=== PATIENT | female | born 2000 | race Two or more races ===

== ENCOUNTER 2025-06-24 09:10 | Outpatient (AMB) | payer MEDICAID, SELFPAY ==
[2025-06-24 09:26] VITALS: BP 126/84; PULSE 106; RESP 20; TEMP 36.6; O2SAT 98; BMI 45.4
--- NOTE | 2025-06-24 09:26 | OBCLNT_ITS ---
Vital Signs 06/24/25 09:26 Height 1.73 m Height Method Stated Weight 135.624 kg Weight Measurement Method Standing Scale BMI 45.4 BP 126/84 Blood Pressure Source Automatic Cuff Blood Pressure Location Left Upper Arm Position Sitting Respiration 20 Pulse 106 H Pulse Source Monitor Temp 97.8 F Temp Source Oral Pulse Oximetry (%) 98 Oxygen Delivery Method Room Air Allergies/Home Meds Allergies & Medications Allergies No Known Allergies Allergy (Verified 06/24/25 09:28) Medication Reconciliation No Known Home Medications 06/24/25 [History Confirmed 06/24/25] Intake Visit Data Collection New Patient or Established: New Patient not seen in past 3 years at [facility] (considered New) Reason for Visit:: INITIAL CARE Seen by Clinical Staff ONLY (RN/MA): No Senior Biostatistician Required: No Do You Feel Safe at Home: Yes Authorities Contacted: N/A PCP or OBGYN visit in last 3 months: Yes Hx Now: Yes Are you currently on any form of Control: No Last menstrual period: 10/19/24 Pain Present Currently: No Pain Scale Used: Ramon-Carlos/Numerical Pain scale:: 0 Smoking Status Smoking Status: Former smoker Questionnaires Covid-19 Vaccine Questionnaire Has patient been vacinated for Covid-19 Have you been vacinated for Covid-19: No PHQ-9 PHQ-2 Over the last 2 weeks, how often have you been bothered by any of the following problems? 1. Little interest or pleasure in doing things: not at all 2. Feeling down, depressed, or hopeless: not at all Total score: 0 PHQ-9 3. Trouble falling or staying asleep, or sleeping too much: Not at all 4. Feeling tired or having little energy: Not at all 5. Poor appetite or overeating: Not at all 6. Feeling bad about yourself - or that you are a failure or have let yourself or your family down: Not at all 7. Trouble concentrating on things, such as reading the newspaper or watching television: Not at all 8. Moving or speaking so slowly that other people could have noticed? - Or the opposite - being so fidgety or restless that you have been moving around a lot more than usual: not at all 9. Thoughts that you would be better off or of hurting yourself in some wa y: Not at all Total score: 0 Source: Developed by Drs. Jono Watson, Trish Blanco, Guero Estevez and colleagues, with an educational jose from [employer]. Depression screen completed yes Social History Living Situation History Marital Status: Lives With: Family Housing: House Tobacco History Smoking Status: Former smoker Second Hand Smoke Exposure: Yes Alcohol History Alcohol Intake: Former Domestic Abuse History Do You Feel Safe at Home: Yes History of Present Illness HPI Narrative Chief Complaint Transfer of care from Dr. Vu for ongoing care Patient is a woman at 35 weeks gestation, presenting for transfer of care from Dr. Vu. She reports that her is progressing well overall. She denies any contractions or leaking of fluid. The baby is active, and she has not experienced any concerning symptoms such as severe headaches, visual disturbances, or right-sided abdominal pain. She mentions feeling that she has doubled in size in the past couple weeks all of a sudden, which she attributes to normal progression. Her current has been complicated by hypertension and proteinuria. The hypertension was diagnosed during this , and medication was initiated after conception. She is currently taking labetalol for blood pressure management and appears to be adhering to her prescribed treatment regimen. Medical History: - Hypertension diagnosed during - Proteinuria Obstetric History: - GPAL: A0 L0 - Current : 35 weeks gestation with estimated due date of July 26, 2025 Medications: - Labetalol 200 mg three times daily - One-hour glucose tolerance test (04-23-2025): 83 mg/dL - CBC (03-13-2025): Hemoglobin 12.9 g/dL, platelets 276 - A1c (3rd trimester): 4.9% - Panel (03-13-2025): Blood group B-positive, rubella immune, RPR nonreactive, hepatitis B negative, HIV negative, gonorrhea negative, chlamydia negative, AFB negative, cystic fibrosis negative - RPR (3rd trimester): Nonreactive OB Initial Visit OB Flowsheet OB Flowsheet Initial Weight: Not Recorded Date -?-?-?-?-?-?-?-?-?-?-?-?- EGA Weight BP Alb Glu CTX Pres Fundal ht FHR Mov Dilation Station Effacement Hx Notes Visit Note 06/24/25 -?-?-?-?-?-?-?-?-?-?-?-?- 35w 3d 135.624 kg 126/84 absent cephalic 36 14 5 active - Mar Mason is presenting for transfer of care from Dr. Vu for ongoing care. - She is currently 35 weeks wit h an estimated due date of 07-26-2025, expecting a boy named Jesus. - She has a history of hypertension and proteinuria diagnosed during this . - She is currently taking labetalol 200 mg three times daily for blood pressure management. - She reports that the is kennedi g well overall. - She describes feeling like she has do ubled in size in the past couple weeks all of a sudden. - She reports the baby is active. - She denies contractions or leaking of fluid. - She confirms adherence to her blood pressure medication regimen. Plan - Continue current labetalol regimen of 200mg three times daily - Monitor blood pressure closely - Plan for delivery at 38 or 39 weeks de pending on blood pressure control - Follow up appointments weekly - Patient instructed to urgently seek me dical attention for signs of preeclampsia (severe headache, visual disturbances, right upper quadrant pain) - No medication refills needed at this t kasi Menstrual History Menstrual reliability: definite Flow: normal Menstrual regularity: regular Monthly: Yes Age at menarche: 11 On control pills at conception: No Associated symptoms (LMP): Reports fatigue OB History : 1 Infection History & Risk Evaluation History of STDs: none Genetic Screening & History Genetic Screening/Teratology Counseling - Includes patient, baby's father, or anyone in either family with: 1. Patient's age 35 years or older as of estimated date of delivery: No 2. Thalassemia (Cymro, Kiswahili, Mediterranean, or Background); MCV less than 80: No 3. Neural Tube Defect (Meningomyelocele, Spina Bifida, or Anencephaly): No 4. Congenital Heart Defect: No 5. Down Syndrome: No 6. Haile-Sachs (Ashkenazi Protestant, Cajun, Icelandic Guinean): No 7. Sloane Disease (Ashkenazi Protestant): No 8. Familial Dysautonomia (Ashkenazi Protestant): No 9. Sickle Cell Disease or Trait (): No 10. Hemophilia or other blood disorders: No 11. Muscular Dystrophy: No 12. Cystic Fibrosis: No 13. Kali's Chorea: No 14. Mental Retardation/Autism: Yes (AUTISM BABY FATHER NEPHEW) 15. Other inherited genetic or chromosomal disorder: No 16. Maternal Metabolic Disorder (EG,TYPE 1 Diabetes, PKU): No 17. Patient or baby's father had a child with defects not listed above: No 18. Recurrent loss or a stillbirth: No 19. Medications (including supplements, vitamins, herbs or otc drugs)/illicit/recreational drugs/alcohol since last menstrual period: No 20. Any other: No Infection History 1. Live with someone with TB or exposed to TB: No 2. Rash or viral illness since last menstrual period: No 3. Hepatitis B,C: No Other (see comments) Source: [employer] Review of Systems Constitutional Constitutional: Reports fatigue Endocrine Endocrine: Reports fatigue Exam General Limitations: no limitations General Appearance: alert, in no apparent distress and comfortable Head Head exam: atraumatic and normocephalic Eye Eye exam: Present normal appearance, PERRL and EOMI Neck Neck exam: Present normal inspection and full ROM Chest Chest inspection: Present normal inspection and symmetric chest wall rise; Absent tenderness Resp Respiratory exam: Present normal lung sounds bilaterally; Absent respiratory distress Card Cardiovascular exam: Present regular rate and normal rhythm Abdominal Abdominal exam: Present soft and normal bowel sounds; Absent tenderness, guarding, rebound or rigidity Neuro Neurological exam: Present alert and oriented X3 Psych Psychiatric exam: Present normal affect Assessment & Plan Diagnosis / Problem List (1) Supervision of high risk , unspecified, third trimester: Status: Acute Plan Problem List - Gestational hypertension - Proteinuria Assessment 35-week with chronic hypertension, currently well-controlled on labetalol 200mg TID. Blood pressure today 126/84. Patient reports good movement, denies contractions or leaking fluid. heart rate auscultated at 143-145 bpm. History of proteinuria noted. Patient educated on signs of preeclampsia. Fundal height appears large for gestational age. Patient reports recent rapid growth in abdominal size. All labs, including blood type, infectious disease screening, and genetic testing, are within normal limits. One-hour glucose tolerance test and recent A1c are normal. Plan - Continue current labetalol regimen of 200mg three times daily - Monitor blood pressure closely - Plan for delivery at 38 or 39 weeks depending on blood pressure control - Follow up appointments weekly - Patient instructed to urgently seek medical attention for signs of preeclampsia (severe headache, visual disturbances, right upper quadrant pain) - No medication refills needed at this time 1. Progress Reviewed gestational age (35 weeks), growth, and heart rate (143-145 bpm, normal). Planned frequent visits (weekly until delivery). 2. Instructed patient to monitor movements and report decreases immediately. 3. Testing Counseled on routine third-trimester labs per guidelines. Discussed potential need for ultrasound or monitoring based on risk factors. 4. Preeclampsia Precaution Educated on preeclampsia signs: severe headache, vision changes (floaters), right upper quadrant pain, sudden swelling. Advised urgent reporting of symptoms and discussed blood pressure monitoring (patient on labetalol 200mg three times daily for gestational hypertension). 5. Labor Precautions Reviewed labor signs: regular contractions, pelvic pressure, back pain, bleeding, or fluid leakage. Instructed to seek immediate care for these symptoms. 6. Lifestyle and Delivery Preparation Reinforced vitamins, nutrition, and safe activity. Discussed plan, pain management, and . Advised on labor preparation (e.g., hospital bag) and expectations. Planned delivery at 38-39 weeks depending on blood pressure control. 7. Psychosocial Support Assessed emotional well-being and offered resources for mental health or parenting support.
== END 2025-06-24 10:26 | disposition home or self-care (01) ==
LOC: HODSOBC 09:10
PROVIDERS: Supervising Provider Obstetrics & Gynecology; Visit Provider Obstetrics & Gynecology
DX: O09.893 Supervision of other high risk pregnancies, third trimester (principal); O13.3 Gestational [pregnancy-induced] hypertension without significant proteinuria, third trimester; Z3A.35 35 weeks gestation of pregnancy; Z87.891 Personal history of nicotine dependence
CPT/HCPCS: 99214; G0463

== ENCOUNTER 2025-07-03 13:51 | Outpatient (AMB) | payer MEDICAID, SELFPAY ==
[2025-07-03 14:03] VITALS: BP 125/86; PULSE 92; RESP 18; TEMP 35.7; O2SAT 97; BMI 45.1
--- NOTE | 2025-07-03 14:03 | AMB.OBVISIT ---
Vital Signs 07/03/25 14:03 Height 1.73 m Height Method Stated Weight 135.171 kg Weight Measurement Method Standing Scale BMI 45.1 BP 125/86 H Blood Pressure Source Automatic Cuff Blood Pressure Location Left Upper Arm Position Sitting Respiration 18 Pulse 92 Pulse Source Monitor Temp 96.3 F L Temp Source Oral Pulse Oximetry (%) 97 Oxygen Delivery Method Room Air Allergies/Home Meds Allergies & Medications Allergies No Known Allergies Allergy (Verified 07/03/25 14:04) Medication Reconciliation No Known Home Medications 06/24/25 [History Confirmed 07/03/25] Intake Visit Data Collection New Patient or Established: Established Patient (seen at [facility] within 3 years) Reason for Visit:: CARE Seen by Clinical Staff ONLY (RN/MA): No Screen Printing Machine Operator Helper Required: No Do You Feel Safe at Home: Yes Authorities Contacted: N/A PCP or OBGYN visit in last 3 months: Yes Hx Now: Yes Are you currently on any form of Control: No Pain Present Currently: No Pain Scale Used: Ramon-Carlos/Numerical Pain scale:: 0 Smoking Status Smoking Status: Former smoker Questionnaires Covid-19 Vaccine Questionnaire Has patient been vacinated for Covid-19 Have you been vacinated for Covid-19: No PHQ-9 PHQ-2 Over the last 2 weeks, how often have you been bothered by any of the following problems? 1. Little interest or pleasure in doing things: not at all 2. Feeling down, depressed, or hopeless: not at all Total score: 0 PHQ-9 3. Trouble falling or staying asleep, or sleeping too much: Not at all 4. Feeling tired or having little energy: Not at all 5. Poor appetite or overeating: Not at all 6. Feeling bad about yourself - or that you are a failure or have let yourself or your family down: Not at all 7. Trouble concentrating on things, such as reading the newspaper or watching television: Not at all 8. Moving or speaking so slowly that other people could have noticed? - Or the opposite - being so fidgety or restless that you have been moving around a lot more than usual: not at all 9. Thoughts that you would be better off or of hurting yourself in some way: Not at all Total score: 0 Source: Developed by Trish Ocampo B.W. Francis, Guero Estevez and colleagues, with an educational jose from [employer]. Depression screen completed yes Social History Living Situation History Lives With: Family Housing: House Tobacco History Smoking Status: Former smoker Second Hand Smoke Exposure: Yes Alcohol History Alcohol Intake: Former Domestic Abuse History Do You Feel Safe at Home: Yes Care OB Visit Log OB Flowsheet Initial Weight: Not Recorded Date <del>?</del> EGA Weight BP Alb Glu CTX Pres Fundal ht FHR Mov Dilation Station Effacement Hx Notes Visit Note 06/24/25 <del>?</del> 35w 3d 135.624 kg 126/84 absent cephalic 36 145 active - Mar Mason is presenting for transfer of care from Dr. Vu for ongoing care. - She is currently 35 weeks with an estimated due date of 07-26-2025, expecting a boy named Jesus. - She has a history of hypertension and proteinuria diagnosed during this . - She is currently taking labetalol 200 mg three times daily for blood pressure management. - She reports that the is going well overall. - She describes feeling like she has doubled in size in the past couple weeks all of a sudden. - She reports the baby is active. - She denies contractions or leaking of fluid. - She confirms adherence to her blood pressure medication regimen. Plan - Continue current labetalol regimen of 200mg three times daily - Monitor blood pressure closely - Plan for delivery at 38 or 39 weeks depending on blood pressure control - Follow up appointments weekly - Patient instructed to urgently seek medical attention for signs of preeclampsia (severe headache, visual disturbances, right upper quadrant pain) - No medication refills needed at this time 07/03/25 <del>?</del> 36w 5d 135.171 kg 125/86 absent cephalic 37 175 active - Patient has a history of gestational hypertension with proteinuria. - She reports adherence to prescribed medication (labetalol). - Denies symptoms of preeclampsia: - No headaches - No visual disturbances (flashes of light) - movement reported as normal. - Induction of Labor scheduled for July 13 - Patient to call provided number at 8:00 AM on July 13 for room assignment and arrival time - Cervix will be checked upon hospital arrival to determine appropriate induction medication - Goal is to achieve vaginal unless complications arise - Patient given brochure with induction instructions - No further appointments scheduled prior to induction CHRISTIANO Calculator Estimated Delivery Date Method Current WG Current Estimate 07/26/25 LMP (Certain) 37w 2d Other Estimates 07/26/25 Ultrasound #1 37w 2d Notes Visit Date: 06/24/25 Last Updated by: Navin Red MD - One-hour glucose tolerance test (04-23-2025): 83 mg/dL - CBC (03-13-2025): Hemoglobin 12.9 g/dL, platelets 276 - A1c (3rd trimester): 4.9% - Panel (03-13-2025): Blood group B-positive, rubella immune, RPR nonreactive, hepatitis B negative, HIV negative, gonorrhea negative, chlamydia negative, AFB negative, cystic fibrosis negative - RPR (3rd trimester): Nonreactive Office Procedures O[facility] Clinic LOC & Office Proc's Nursing/Assessment Patient Status: Established Patient OB Clinic Nursing Assessment: Medication Reconciliation, Update PMH in EMR and Vital Signs OB Clinic Coordination of Care: Complex Care and Chronic Disease 1-5, Consent,records obtained, informed consent, Education Simp Pt/Fam, 1 Ins Authorization, Lab and Imaging orders, Results/Orders obtained and Staff clarify orders Special Needs: Heart tones Established Patient Charge Established Patient Point Assignment: 150 Established Patient Point Charge: EP Level 4 (120-155) Assessment & Plan Diagnosis / Problem List (1) Supervision of high risk , unspecified, third trimester: Status: Acute Plan Problem List - Gestational hypertension with proteinuria - Large for gestational age fetus - at 36 weeks and 5 days gestation Assessment 1 at 36 weeks and 5 days gestation with estimated due date of 07/26. Patient has gestational hypertension with proteinuria. Current blood pressure is 125. Fetus is large for gestational age. heart rate is 175 bpm, which is within normal limits. Patient denies experiencing symptoms such as flashes of light or headaches. Plan - Induction of Labor scheduled for July 13 - Patient to call provided number at 8:00 AM on July 13 for room assignment and arrival time - Cervix will be checked upon hospital arrival to determine appropriate induction medication - Goal is to achieve vaginal unless complications arise - Patient given brochure with induction instructions - No further appointments scheduled prior to induction 1. Progress Reviewed gestational age, growth, and heart rate. Planned frequent visits (every 2 weeks until 36 weeks, then weekly). 2. Instructed patient to monitor movements and report decreases immediately. 3. Testing Counseled on routine third-trimester labs per guidelines. Discussed potential need for ultrasound or monitoring based on risk factors. 4. Preeclampsia Precaution Educated on preeclampsia signs: severe headache, vision changes, right upper quadrant pain, sudden swelling. Advised urgent reporting of symptoms and discussed blood pressure monitoring if high risk. 5. Labor Precautions Reviewed labor signs: regular contractions, pelvic pressure, back pain, bleeding, or fluid leakage. Instructed to seek immediate care for these symptoms. 6. Lifestyle and Delivery Preparation Reinforced vitamins, nutrition, and safe activity. Discussed plan, pain management, and . Advised on labor preparation (e.g., hospital bag) and expectations. 7. Psychosocial Support Assessed emotional well-being and offered resources for mental health or parenting support.
== END 2025-07-03 14:40 | disposition home or self-care (01) ==
PROVIDERS: Supervising Provider Obstetrics & Gynecology; Visit Provider Obstetrics & Gynecology
DX: O09.893 Supervision of other high risk pregnancies, third trimester (principal); O13.3 Gestational [pregnancy-induced] hypertension without significant proteinuria, third trimester; O36.63X0 Maternal care for excessive fetal growth, third trimester, not applicable or unspecified; Z3A.36 36 weeks gestation of pregnancy; Z87.891 Personal history of nicotine dependence
CPT/HCPCS: 99214; G0463

== ENCOUNTER 2025-07-13 19:22 | Inpatient (IN) | payer MEDICAID, SELFPAY ==
[2025-07-13] VITALS (11 sets, daily range): BP systolic 104–158; BP diastolic 58–112; PULSE 64–93; RESP 16–17; TEMP 37.2–37.6; BMI 45.6
[2025-07-13 20:01] LABS: Basophils # (Auto) 0.0 Thou/mm3 (0.0-0.2); Basophils % (Auto) 0 % (0-2.5); Eosinophils # (Auto) 0.3 Thou/mm3 (0.0-0.5); Eosinophils % (Auto) 3 % (0-10); Hematocrit 36.5 % (36.0-46.0); Hemoglobin 12.3 g/dL (12.0-16.0); Immature Granulocytes Auto 0.03 Thou/mm3 (0.00-0.00); Lymphocytes # (Auto) 2.5 Thou/mm3 (1.0-4.8); Lymphocytes % (Auto) 23 % (10-50); Mean Corpuscular HGB Conc 33.7 g/dl (31.0-37.0); Mean Corpuscular Hemoglobin 30.5 pg (25.0-35.0); Mean Corpuscular Volume 91 fL (80-100); Monocytes # (Auto) 0.7 Thou/mm3 (0.0-0.8); Monocytes % (Auto) 6 % (0-12); Neutrophils # (Auto) 7.5 Thou/mm3 (1.8-7.7); Neutrophils % (Auto) 68 % (37-80); Nucleated Red Blood Cell # 0.00 Thou/mm3 (0.00-0.00); Nucleated Red Blood Cell % 0 /100 WBC (0); Platelet Count 265 Thou/mm3 (140-440); RDW Standard Deviation 43.7 fL (36.4-46.3); Red Blood Count 4.03 Miln/mm3 (4.00-5.20); White Blood Count 11.0 Thou/mm3 (3.6-11.0)
--- NOTE | 2025-07-13 20:29 | XR_ITS ---
Examination: Complete OB ultrasound greater than 14 weeks Date and time of exam: July 13, 2025 2130 hours INDICATIONS: Labor evaluation, induction today Findings: Viable intrauterine single fetus with single amniotic sac presentation cephalic Cardiac motion 133 bpm Placenta anterior grade 3 Umbilical cord insertion seen Amniotic fluid index 10.2 cm spine maternal left Cervix 3.1 cm Ovaries obscured by bowel gas. Composite estimated gestational age based on BPD, head circumference, abdominal circumference, femur length is 37 weeks 5 days Estimated weight 3180 g. Survey of intracranial anatomy, spinal anatomy, abdominal anatomy, four-chamber heart performed with no abnormalities identified. Impression: Viable intrauterine gestation cephalic presentation.
[2025-07-13 20:41] LABS: Syphilis Nonreactive (Nonreactive)
[2025-07-13 23:02] LABS: Fibrinogen 545 mg/dL (175-375); INR 1.0 (0.9-1.3); Partial Thromboplastin Time 26.5 Seconds (22.0-36.0); Prothrombin Time 10.3 Seconds (9.0-12.2)
[2025-07-13 23:46] LABS: Alanine Aminotransferase 15 U/L (10-49); Albumin, Serum 4.3 gm/dL (3.5-5.0); Albumin/Globulin Ratio 1.7 (1.2-2.2); Alkaline Phosphatase 162 U/L (46-116); Anion Gap 11 (7-16); Aspartate Amino Transferase 22 U/L (0-34); BUN/Creatinine Ratio 12 Ratio (12-20); Bilirubin,Total 0.3 mg/dL (0.3-1.2); Blood Urea Nitrogen 11 mg/dL (9-23); Calcium 9.7 mg/dL (8.3-10.6); Calcium (Corrected) 9.7 mg/dL (8.5-10.1); Carbon Dioxide 22.4 mMol/L (20.0-31.0); Chloride 109 mMol/L (98-107); Creatinine (Component) 0.9 mg/dL (0.6-1.3); Estimated Creatinine Clearance 139.9 mL/min (>60); Globulin 2.6 gm/dL (2.3-3.5); Glucose 87 mg/dL (74-106); Osmolality,Calculated 281 (275-295); Potassium 3.9 mMol/L (3.4-5.1); Sodium 142 mMol/L (136-145); Total Protein 6.9 gm/dL (5.7-8.2); Uric Acid 5.9 mg/dL (3.1-7.8); eGFR > 60 See Note
[2025-07-14] VITALS (43 sets, daily range): BP systolic 88–137; BP diastolic 50–91; PULSE 68–95; RESP 16–17; TEMP 36.8–37.1
[2025-07-14 00:16] LABS: Creatinine,Random Urine 214 mg/dL (30-125); Protein Total, Random Urine 38 mg/dL (1-14)
--- NOTE | 2025-07-14 00:23 | PC.NURSE ---
07/13/2025 221 BP 158/112 PATIENT LAYING ON CUFF, RECYCLED 2216 115/62.
[2025-07-14 00:38] LABS: LDH (Lactate Dehydrogenase) 224 U/L (120-246)
[2025-07-14] MEDS: RINGERS LACTATED 1000 ML 1,000 ML 100 ML IV ×2 (03:54→16:40)
--- NOTE | 2025-07-14 07:15 | ESHP_ITS ---
Documentation for date of: 07/14/25 OB Labor/Induct. HPI History of Present Illness Chief complaint: IOL for CHTN : 1 Para: 0 Term pregnancies: 0 pregnancies: 0 Living children: 0 History of Abortions: Spontaneous and Elective: 0 History of Vaginal deliveries: 0 History of sections: No Date of last menstrual period: 10/19/24 CHRISTIANO: 07/26/25 Gestational Age (weeks): 38 Gestational Age (days): 2 Gestational age based on last menstrual period: 38 History of present illness: This is a 24-year-old 1 para 0 admit to labor and delivery for induction labor. Patient was followed at Dr. SMITH office. Patient has a history of having hypertension and proteinuria with the . She has been taking labetalol 200 3 times daily. She also has gotten weekly NST BPP for hypertension and she has obesity. Denies social habits. Denies surgery. Denies any coexisting medical illness. Last. October 19, 2024. This gave due date July 26, 2025. Patient is B+, antibody screen negative, RPR nonreactive, rubella immune, hepatitis B negative, hep C negative, HIV negative, GC and Chlamydia were negative. 1 hour was normal. NIPT and carrier screens negative. And GBS is negative. Reports movement. No contractions History of Present Dating criteria: LMP confirmed by 1st trimester US Ultrasounds: normal 1st trimester US and normal mid trimester US Obstetrical complications: gestational hypertension Labs Labs: Positive: Rubella Titre, Negative: RPR, Hepatitis B, HIV, Chlamydia and Gonorrhea and Unknown: Herpes Type 1 and Herpes Type 2 Review of Systems Review of Systems Systems Reviewed: All systems reviewed, normal except as documented Past Medical History Surgical History SURGICAL: Negative Section Meds Home Medications and Allergies Home Medications ?Medication ?Instructions ?Recorded ?Confirmed ?Type No Known Home Medications 06/24/2510/27 History Allergies Allergy/AdvReac Type Severity Reaction Status Date / Time No Known Allergies Allergy Verified 07/03/25 14:04 OB Exam Physical Exam Vital signs: Temp Pulse Resp BP 98.9 F 90 17 100/66 07/13/25 21:00 07/14/25 07:06 07/13/25 21:00 07/14/25 07:06 Narrative: Alert and oriented. Normal heart rate and rhythm. Lungs clear no wheezes. Gravid abdomen. Gynecoid pelvis. DTRs were 2+. heart work category 1 with accelerations and moderate variability no contractions. Baby is vertex. Bag water intact. Occasional contraction. Detailed Labor and Delivery Exam Dilation (cm): 1 Effacement (%): thick Cervix position: posterior station: -3 Consistency: medium Presentation: Vertex Baseline heart rate: 145 monitor accelerations: 15x15 monitor decelerations: None correction variability: Moderate (11-25) Contraction frequency (min): occ Contraction duration (sec): 30 Tachysystole: No Contraction intensity: Mild OB Results Labs 07/13/25 19:40 07/13/25 19:40 Labs: Short CBC 07/13/25 Range/Units 19:40 WBC 11.0 (3.6-11.0) Thou/mm3 Hgb 12.3 (12.0-16.0) g/dL Hct 36.5 (36.0-46.0) % Plt Count 265 (140-440) Thou/mm3 BMP 07/13/25 19:40 Sodium 142 Potassium 3.9 Chloride 109 H Carbon Dioxide 22.4 BUN 11 Creatinine 0.9 Glucose 87 Calcium 9.7 Liver Function 07/13/25 Range/Units 19:40 Total Bilirubin 0.3 (0.3-1.2) mg/dL AST 22 (0-34) U/L ALT 15 (10-49) U/L Alkaline Phosphatase 162 H (46-116) U/L Albumin 4.3 (3.5-5.0) gm/dL OB Assessment & Plan Assessment and Plan (1) Normal labor and delivery: Status: Acute (2) Gestational [-induced] hypertension without significant proteinuria, third trimester: Status: Acute Additional Plan Induction method: per misoprostol protocol Plan: induction, anticipate NVD and consult MD sanchez
[2025-07-15] VITALS (185 sets, daily range): BP systolic 100–169; BP diastolic 58–107; PULSE 70–107; RESP 12–29; TEMP 36.5–37.5; O2SAT 89–100
[2025-07-15] MEDS: RINGERS LACTATED 1000 ML 1,000 ML 100 ML IV ×3 (08:12→11:49)
--- NOTE | 2025-07-15 08:48 | PD.LDPN ---
Documentation for date of: 07/15/25 OB Labor Progress Note Pain Control Pain control: tolerating well Pelvic Exam Dilation (cm): 4 Effacement (%): 70 station: -2 Amniotic membrane status: Ruptured Contractions Monitor mode: Internal Contraction frequency: 4 Contraction duration: 40 Contraction pattern: Coupling Contraction phase: Resting Contraction intensity: Mild Status status: Category l Assessment and Plan Assessment: induction ongoing Plan OB labor note: begin Pitocin augmentation CNM Management MD Consulted (describe details below): Yes
--- NOTE | 2025-07-15 11:30 | PC.NURSE ---
In room 457 computer logged into Megan Santos RN account during epidural procedure. As RN Megan Iglesias is not on unit today and I (Dee RN) used own badge to sign into computer; RN did not recognize it was on another RN's account until pin needed for medication under Roxanne Iglesias. [facility] called. Instructed to wait 20 minutes until Megan Iglesias's session times out and have Megan Iglesias undo documentation done by Marilu Kilgore RN.
[2025-07-15] MEDS: OXYTOCIN in NS 30 units 30 UNIT/500 ML BAG IV (11:49)
[2025-07-15] MEDS: SODIUM CHLORIDE 0.9% 500 ML 500 ML 999 ML IV (16:24)
--- NOTE | 2025-07-15 17:21 | ESPR_ITS ---
Documentation for date of: 07/15/25 OB Labor Progress Note Pelvic Exam Dilation (cm): Unchanged Effacement (%): 75 station: -2 Amniotic membrane status: Ruptured Contractions Monitor mode: Internal Contraction frequency: 6-10 Contraction pattern: Tetanic Contraction phase: Resting Contraction intensity: Moderate Status status: Category ll Assessment and Plan Comments: Decision for section Mar is a 24yo with SIUP at 38w3d undergoing IOL for GHTN treated with labetalol. also complicated by current BMI 45.6. Induction was started with CNJessenia Clark. She received cervidil and then IV pitocin and had AROM. She has progressed to 7cm but there is now a Cat II FHRT with unchanging cervical dilation. Pitocin unable to be titrated up 2/2 FHRT. I discussed with patient my recommendation for PLTCS and she is amenable. -Counseled/consented re: section. Discussed all r/b/a to include: blee ding (possible need for blood transfusion), infection (subcutaneous, deeper layers or uterine with possible need for prolonged admission or re-admission for IV antibiotics, I&D with wound packing, etc), injury to nearby structures such as bladder, bowel, ureters, blood vessels, nerves with possible need for re- operation, pain, injury to baby, hysterectomy, DVT/PE, . Answered all questions to patient and their support person's satisfaction. -IV abx ppx: ancef 3g IV x1 and azithromycin 500mg IV x1 -Nursing and anesthesia team aware of plan for section. Will proceed to OR when team is ready Lisy Muse MD
[2025-07-15] MEDS: METOCLOPRAMIDE INJ 5 MG/ML VIAL 2 ML 10 MG IVP (17:43)
[2025-07-15] MEDS: FAMOTIDINE INJ 10 MG/ML VIAL 2 ML 20 MG IV (17:43)
[2025-07-15] MEDS: AZITHROMYCIN INJ 500 MG in SODIUM CHLORIDE 0.9% 250 ML 250 ML 250 MG IV (17:44)
[2025-07-15] MEDS: ceFAZolin/D5W 1 GM IVPB 1 GM/50 ML BAG IV (17:44)
[2025-07-15] MEDS: ceFAZolin/D5W 2 GM IV 2 GM/100 ML BAG IV (17:44)
--- NOTE | 2025-07-15 19:33 | PD.GYNPROC ---
Operative Note - SALES SUPPORT REPRESENTATIVE Procedure Date of procedure: 07/15/25 Procedure Performed: Primary Low Transverse Section Indication: Mar is a 24yo with SIUP at 38w3d undergoing IOL for GHTN treated with labetalol. also complicated by current BMI 45.6. She progressed to 7cm with cervidil and then IV pitocin and AROM, however she then developed persistent Cat II FHRT remote from delivery and was counseled regarding recommendation for delivery. All r/b/a discussed and she was amenable. Pre-Op diagnosis: SIUP at 38w3d Persistent Cat II FHRT remote from delivery GHTN treated with labetalol Current BMI 45.6 Post-Op diagnosis: SIUP at 38w3d Persistent Cat II FHRT remote from delivery GHTN treated with labetalol Current BMI 45.6 Anesthesia type: Spinal Fluids: crystalloid Fluid amount (mL): 3,000 Urine output (mL): 500 Specimen: other (placenta and cord not sent to pathology) Estimated blood loss (ml): 800 Findings: Male infant in cephalic asynclytic presentation, apgars 9/9, weight [id number], TOB 18:33. Normal appearing uterus, fallopian tubes and ovaries. Complications: none Narrative: After obtaining informed consent, the patient was taken to the operating room. There was reassuring heart rate tracing prior. Spinal anesthesia was administered and epidural catheter was removed. She had rm catheter in place. Bilateral sequential compression devices were placed. She was then prepped and draped in the normal sterile fashion in the dorsal supine position with left lateral tilt. A timeout was performed to confirm patient name, date of , procedure and indication. The team was in agreement. Spinal anesthesia was found to be adequate using an Allis clamp. Anceph 3g IV x1 and azithromycin 500mg IV x1 were given for prophylaxis. A Pfannenstiel skin incision was then made with the scalpel and carried through to the underlying layer of fascia. The fascia was incised in the midine and the incision was extended laterally with the Acevedo scissors. The superior and inferior aspects of the fascial incision were then grasped with the Kate clamps, elevated and the underlying rectus muscles were dissected off bluntly and sharply. The peritoneum was entered digitally and the rectus muscles were then in the midline. The peritoneal incision was then extended superiorly and inferiorly with good visualization of the bladder. An Scar retractor was placed and the vesicouterine peritoneum was then identified, grasped with the pickups, and entered sharply with the Metzenbaum scissors. The incision was extended laterally and the bladder flap created digitally. The lower uterine segment was scored in a transverse fashion with the scalpel. The uterus was then entered bluntly and the incision was extended with traction with clear amniotic fluid noted. The 's head was elevated to the level of the incision. Fundal pressure was applied. The head was delivered atraumatically in the OA position. The anterior shoulder, posterior shoulder and corpus were delivered without difficulty. The nose and mouth were suctioned with bulb suction and cord was clamped x2 and cut. Infant was vigorous. The was handed off to the awaiting pediatric team. Cord blood obtained for typing. The placenta was then removed with uterine massage and cord traction. The uterus was exteriorized and cleared of all clot and debris. The uterine incision was repaired with 0-monocryl suture in a running locking fashion. A second layer of O-monocryl was used to closed the hysterotomy incision in an imbricating fashion. The uterine incision was inspected and hemostasis was noted. In addition to standard IV pitocin, patient received TXA 1g IV x1 and methergine 0.2mg IM x1 with good tone achieved and maintained. The posterior cul-de-sac was suctioned and the uterus returned to the abdomen. Hemostasis of repaired hysterotomy noted. Surgicel powder placed along the repaired hysterotomy. The gutters were cleared of all clot. Scar retractor was removed. The peritoneum was closed using a 3-0 vicryl suture in running fashion. The rectus muscles were inspected and noted to be hemostatic. The fascia was reapproximated with 0-Vicryl suture in a running fashion. The subcutaneous tissue was then copiously irrigated. Chago's fascia was reapproximated in 3 layers using 3-0 vicryl suture in a running fashion. The skin was reapproximated with 4-0 monocryl suture in running subcuticular fashion. The incision was cleaned with a wet lap and dried with a dry lap. Jevcfgnuc-[id number] bandage was applied overlying the incision and activated according to front end developer instructions. Fundus was firm at the U-1cm. Sponge, lap and needle counts were correct x2. The procedure was without complications and the patient tolerated the procedure well. She was taken to recover further on Labor and Delivery, in stable condition. Surgical staff Operation Date: 07/15/25 18:15 Case Staff MOBILE DEVICE ENGINEER: Dung Redmond RN First Assistant: Kenzie Voss Diagnosis Discharge Diagnosis (1) delivery delivered: Status: Acute (2) Category II heart rate tracing during labor and delivery: Status: Acute (3) Gestational [-induced] hypertension without significant proteinuria, third trimester: Status: Acute (4) Obesity affecting in third trimester: Status: Acute Problem List Completed Was Problem List Reviewed/Reconciled?: Yes (4) Obesity affecting in third trimester Qualifiers: Obesity type affecting : unspecified obesity Qualified Code(s): O99.213 - Obesity complicating , third trimester
--- NOTE | 2025-07-15 19:54 | PC.NURSE ---
1700: JANETH Price and DR Guevara in OB OR. DR GUEVARA aware of ordered labetalol being held due to BP's within normal range. Per MD will D/C medication and watch BP's.
[2025-07-16] VITALS (7 sets, daily range): BP systolic 110–128; BP diastolic 74–84; PULSE 74–107; RESP 16–18; TEMP 36.4–37.1; O2SAT 95–99
[2025-07-16] MEDS: KETOROLAC INJ 30 MG/ML VIAL IVP ×3 (00:09→12:12)
[2025-07-16] MEDS: OXYTOCIN in NS 20 units 20 UNIT/1,000 ML BAG 125 UNIT IV (01:36)
[2025-07-16] MEDS: ceFAZolin/D5W 1 GM IVPB 1 GM/50 ML BAG IV ×2 (02:03→10:55)
[2025-07-16] MEDS: ceFAZolin/D5W 2 GM IV 2 GM/100 ML BAG IV ×2 (02:03→10:12)
[2025-07-16 05:20] LABS: Basophils # (Auto) 0.0 Thou/mm3 (0.0-0.2); Basophils % (Auto) 0 % (0-2.5); Eosinophils # (Auto) 0.1 Thou/mm3 (0.0-0.5); Eosinophils % (Auto) 1 % (0-10); Hematocrit 32.0 % (36.0-46.0); Hemoglobin 10.6 g/dL (12.0-16.0); Immature Granulocytes Auto 0.04 Thou/mm3 (0.00-0.00); Lymphocytes # (Auto) 2.3 Thou/mm3 (1.0-4.8); Lymphocytes % (Auto) 15 % (10-50); Mean Corpuscular HGB Conc 33.1 g/dl (31.0-37.0); Mean Corpuscular Hemoglobin 30.1 pg (25.0-35.0); Mean Corpuscular Volume 91 fL (80-100); Monocytes # (Auto) 0.9 Thou/mm3 (0.0-0.8); Monocytes % (Auto) 6 % (0-12); Neutrophils # (Auto) 11.7 Thou/mm3 (1.8-7.7); Neutrophils % (Auto) 78 % (37-80); Nucleated Red Blood Cell # 0.00 Thou/mm3 (0.00-0.00); Nucleated Red Blood Cell % 0 /100 WBC (0); Platelet Count 198 Thou/mm3 (140-440); RDW Standard Deviation 43.3 fL (36.4-46.3); Red Blood Count 3.52 Miln/mm3 (4.00-5.20); White Blood Count 15.1 Thou/mm3 (3.6-11.0)
[2025-07-16] MEDS: DOCUSATE SOD 100 MG CAPSULE PO (08:00)
--- NOTE | 2025-07-16 12:34 | PD.LDPPPRG ---
Subjective Subjective Interval history: Patient doing well overall. Pain is controlled. She is ambulating no lightheadedness/dizziness. Voiding spontaneously since rm was removed, no issues. Tolerating regular diet without nausea/vomiting. Passing gas. No fevers/chills, no CP/SOB. Exam Vital Signs Temp Pulse Resp BP Pulse Ox O2 Del Method 98.2 F 90 17 126/84 97 Room Air 07/16/25 12:00 07/16/25 12:00 07/16/25 12:00 07/16/25 12:00 07/16/25 12:00 07/16/25 12:00 Narrative Exam General: well developed, well nourished, no acute distress, conversant Cardiac: normal heart rate Lungs: breathing without distress Abdomen: soft, post-gravid, non-tender, no rebound or guarding, pfannenstiel incision covered by dry/clean/intact prineo bandage. Incision well reapproximated. No erythema, drainage or induration. Fundus firm at u-2cm. Extremities: no pain with palpation of calves, trace edema of BLE Objective Labs 07/16/25 04:54 07/13/25 19:40 Labs: Laboratory Results - last 24 hr 07/16/25 04:54 WBC 15.1 H RBC 3.52 L Hgb 10.6 L Hct 32.0 L MCV 91 MCH 30.1 MCHC 33.1 RDW Std Deviation 43.3 Plt Count 198 D Neut % (Auto) 78 Lymph % (Auto) 15 [place] % (Auto) 6 Eos % (Auto) 1 Baso % (Auto) 0 Neut # (Auto) 11.7 H Lymph # (Auto) 2.3 [place] # (Auto) 0.9 H Eos # (Auto) 0.1 Baso # (Auto) 0.0 Immature Gran # (Auto) 0.04 H Absolute Nucleated RBC 0.00 Immature Gran % 0 Nucleated RBC % 0 Assessment & Plan Problem List (1) delivery delivered: Status: Acute Assessment and plan: Mar is a 24yo G1 [id number] s/p uncomplicated PLTCS after experiencing persistent Cat II FHRT remote from delivery while undergoing IOL for GHTN and BMI 45, doing well on POD 1. Vitals wnl, benign exam. Hemodynamically stable with no evidence of infection. Appropriate change in H/H from 12.3 to 10.6. She had been taking labetalol 200mg PO TID during for GHTN, but had low normal bp's during IOL and so bp meds were held. She continues to be normotensive on no bp meds, so will continue to hold and monitor. Plan: -Continue routine /post-op care -Regular diet -Toradol 30mg IV Q6hr x4 doses, then switch to motrin 800mg PO Q8hr with norco 5/325mg PO Q6hr prn pain -2 doses of ancef 3g IV Q8hr post-op for prophylaxis given elevated BMI -Lovenox 40mg SQ Q24hr to start at 24hr post-op -Encourage ambulation and use of IS -Anticipate discharge home tomorrow if meeting all milestones (2) Category II heart rate tracing during labor and delivery: Status: Acute (3) Gestational [-induced] hypertension without significant proteinuria, third trimester: Status: Acute (4) Obesity affecting in third trimester: Status: Acute Time Spent With Patient Time: Total time spent is greater than 50% in coordination of care (as documented) at patient's floor/unit and/or counseling patient:
[2025-07-16] MEDS: HYDROcodone/APAP 5/325 TABLET 1 TAB PO (18:34)
[2025-07-16] MEDS: IBUPROFEN TAB 400 MG TABLET 800 MG PO (21:19)
[2025-07-17] MEDS: HYDROcodone/APAP 5/325 TABLET 1 TAB PO ×2 (03:53→08:21)
[2025-07-17 04:00] VITALS: BP 123/82; PULSE 74; RESP 18; TEMP 36.6; O2SAT 97
[2025-07-17] MEDS: IBUPROFEN TAB 400 MG TABLET 800 MG PO ×2 (06:31→15:12)
[2025-07-17] MEDS: DOCUSATE SOD 100 MG CAPSULE PO (08:21)
[2025-07-17 08:22] VITALS: BP 127/82; PULSE 92; RESP 17; TEMP 36.4; O2SAT 99
[2025-07-17] MEDS: ENOXAPARIN SOD INJ 40 MG/0.4 ML SYRINGE SC (08:22)
--- NOTE | 2025-07-17 11:30 | PD.LDDS ---
DS: Providers Provider Date of admission: 07/13/25 19:22 Primary care physician: Physician No Primary/Family Admitting Provider: Debbie Clark CNM Attending Provider on Admission: Lisy Muse MD Consults: 07/15/25 19:43 Referral Routine Comment: Attending Provider on DC: Lisy Muse MD Discharging Provider: Lisy Muse MD DS: Diagnosis Discharge Diagnosis (1) care and examination immediately after delivery: Status: Acute (2) delivery delivered: Status: Acute (3) Category II heart rate tracing during labor and delivery: Status: Acute (4) Obesity affecting in third trimester: Status: Acute (5) Gestational [-induced] hypertension without significant proteinuria, third trimester: Status: Acute Problem List Completed Was Problem List Reviewed/Reconciled?: Yes Summary/Hosp Course Brief History: This is a 24-year-old 1 para 0 admit to labor and delivery for induction labor. Patient was followed at Dr. SMITH office. Patient has a history of having hypertension and proteinuria with the . She has been taking labetalol 200 3 times daily. She also has gotten weekly NST BPP for hypertension and she has obesity. Denies social habits. Denies surgery. Denies any coexisting medical illness. Last. October 19, 2024. This gave due date July 26, 2025. Patient is B+, antibody screen negative, RPR nonreactive, rubella immune, hepatitis B negative, hep C negative, HIV negative, GC and Chlamydia were negative. 1 hour was normal. NIPT and carrier screens negative. And GBS is negative. Reports movement. No contractions --- Mar is a 24yo G1 [id number] s/p uncomplicated PLTCS after experiencing persistent Cat II FHRT remote from delivery while undergoing IOL for GHTN and BMI 45, doing well on POD 2. She has had an uncomplicated post-operative course, meeting all milestones and feels ready for discharge home. She is ambulating without lightheadedness, tolerating regular diet no n/v, spontaneously voiding without issue. She has no chest pain or shortness of breath. No fevers or chills. Pain well controlled. Vitals wnl, benign exam. Hemodynamically stable with no evidence of infection. Appropriate change in H/H from 12.3 to 10.6. She had been taking labetalol 200mg PO TID during for GHTN, but had low normal bp's during IOL and normotensive after delivery, so bp meds discontinued. Peripartum Data Delivery Method: Low Transverse Procedures: Procedures Operation Date: 07/15/25 18:15 Actual Procedure Side Surgeon p in OB Not Applicable Lisy Muse MD Status at Discharge Functional status at discharge: independent ambulation Overall status at discharge: patient is back to baseline Time Spent with Patient Time attestation: Total time spent providing and/or coordinating discharge services: Exam Vital Signs Temp Pulse Resp BP Pulse Ox O2 Del Method 97.5 F 92 17 127/82 99 Room Air 07/17/25 08:22 07/17/25 08:22 07/17/25 08:22 07/17/25 08:22 07/17/25 08:22 07/17/25 08:22 Narrative Exam General: well developed, well nourished, no acute distress, conversant Cardiac: normal heart rate Lungs: breathing without distress Abdomen: soft, post-gravid, non-tender, no rebound or guarding, pfannenstiel incision covered by dry/clean/intact prineo bandage. Incision well reapproximated. No erythema, drainage or induration. Fundus firm at u-2cm. Extremities: no pain with palpation of calves, trace edema of BLE Discharge Plan Plan Patient Disposition: HOME (Self Care) Patient condition on transfer: Stable Prescriptions/Referrals Prescriptions/Med Rec: New hydrocodone-acetaminophen 5-325 mg Tablet 1 tab PO Q6H MDD 4 tablets PRN (Reason: Patient rated pain 7 to 8) 7 Days Qty: 12 0RF docusate sodium 100 mg Capsule 100 mg PO BID 10 Days Qty: 20 0RF ibuprofen 800 mg tablet 800 mg PO Q8HR PRN (Reason: Abdominal Pain) 10 Days Qty: 30 0RF Referrals: No Primary/Family,Physician [Primary Care Provider] Patient/Caregiver Discharge Instructions Discharge Activity: activity as tolerated and other Other Discharge Activity Instructions:: vaginal rest and no heavy lifting more than 10 pounds for 6 weeks. keep incision clean and dry, do not submerge. no driving while taking narcotic. Other Discharge Diet Instructions: regular Education Materials: C Section Dc Print Language: Swedish Activity Restrictions/Additional Instructions: follow up with Dr. Red for incision check in 1 week, call office to schedule appointment Stand Alone Forms: Yesy Award Info., Patient Portal Info Letter Discharge Order Discharge Orders: Discharge (Routine); Ordered 07/17/25 Ordered By: Lisy Muse Planned Discharge Date 07/17/25 (4) Obesity affecting in third trimester Qualifiers: Obesity type affecting : unspecified obesity Qualified Code(s): O99.213 - Obesity complicating , third trimester
[2025-07-17 16:30] VITALS: BP 123/82; PULSE 91; RESP 16; TEMP 36.6; O2SAT 97
== END 2025-07-17 18:40 | disposition home or self-care (01) | DRG 540 ==
LOC: S4SX 07-15 17:28 → S4NX 07-15 18:02
PROVIDERS: Admitting Provider Advanced Practice Midwife; Visit Provider Obstetrics & Gynecology
PROC: (CPT 59514; principal; 2025-07-15 18:00)
DX: O13.4 Gestational [pregnancy-induced] hypertension without significant proteinuria, complicating childbirth (principal); Z37.0 Single live birth; Z3A.38 38 weeks gestation of pregnancy; O99.214 Obesity complicating childbirth
CPT/HCPCS: 36415; 59409; 76805; 80053; 81001; 82570; 83615; 84156; 84550; 85025; 85384; 85610; 85730; 86780; 86850; 86900; 86901; 94762; A4217; A4314; A4649; J0456; J0689; J1650; J1885; J2210; J2274; J2371; J2590; J2765; J2795; J3010; J3490; J7050; J7120; J7999; A9270; J2270

== ENCOUNTER 2025-07-18 13:04 | Outpatient (AMBR) | payer MEDICAID, SELFPAY ==
--- NOTE | 2025-07-22 16:45 | LAC.VISIT ---
Assessment LAC Breast Assessment Breast Assessment Bilateral: Breast Assessment Comment: mom has large, pendulous breasts, mom stated that in the hospital she was told she had flat nipples, upon examination she does not have flat nipples, both sides distend with stimulation. explained that she may have had some edema in the hospital which can make them appear to be flat. so up to this point mom states they have been giving bottles with formula because she didn't know if she would be able to breastfed. Alternative Milk Expression Alternative Milk Expression Alternative Method Used: Yes Method Used: Pumping Alternative Method Comment: mom was not instructed to pump to preserve her milk supply. she was issued a nipple shield to assist in latch but was unsure how to use it. issued her a pump to day through [facility]. also had her pump in office, she pumped for 12 minutes both sides and got 3 ounces of milk. super excited for mom that she was able to express so much milk for baby Alternative Method Produced Milk / Colostrum: Yes Production Amount: 3 Production ounces or mls: ounces Pump Used: Electric LAC Assessment Breast Feeding Assessment Date of : 07/15/25 Current Age of baby: 3 (days) Weight: 3458.642 g # of Stool voids in last 24 hrs: 3 Stool Size: Medium Color of Stools: dark, brown/green [place] # of Urine voids in last 24 hrs: 3 Color of Urine: yellow Breast Feeding Ability: Poor Complications: Difficult Latch Complications Comment: oral tissue tethers [place] Activity Level: Sleepy Muscle Tone: Tense Effective Suck: No [place] Jaw: Clentched Lip Seal: Tight Lips LAC Intervention Interventions Tools: Nipple Shield, Pump and Aid Nipple Shield Size: Medium Techniques Discussed: Latch, Position and Pumping Discharge Follow Up Appointment Date and Time: 07/29/25 Other Referral Made: Yes Feeding Preference at Discharge: Breast Milk and Formula LAC [place] Oral Assessment Oral Assessment Prenulum Level: Normal Lip: Tight Upper Lip Palate: Normal / Intact Dental Referral made: Yes OP DC Assessment Discharge Follow Up Appointment Date and Time: 07/29/25 Other Referral Made: Yes Visit Complete?: Yes
--- NOTE | 2025-07-25 15:36 | LACNOTE_ITS ---
Assessment Alternative Milk Expression Alternative Milk Expression Alternative Method Used: Yes Method Used: Pumping Alternative Method Comment: mom using [employer] pump Alternative Method Used Reason: Poor Feeding Alternative Method Produced Milk / Colostrum: Yes Production Amount: 120 Production ounces or mls: ounces Pump Used: Electric Pumping Frequency Per Day: 8 Pumping Frequency Comment: mom pumps prior to every feed. states doing really well, no pain during pumping or after. LAC Assessment Breast Feeding Assessment Date of : 07/15/25 Current Age of baby: 10 (days) Weight: 3458.642 g Current weight of baby: 3657.088 g # of Stool voids in last 24 hrs: 5 Stool Size: Medium Color of Stools: yellow [place] # of Urine voids in last 24 hrs: 5 Color of Urine: clear to yellow Breast Feeding Ability: No Attempted [place] Complications: Weight loss [place] Activity Level: Sleepy Breast Feeding Comment: mom strickly pumping and giving breast milk in a bottle. baby doing really well LAC Intervention Interventions Tools: Nipple Shield and Pump Nipple Shield Size: Medium Intervention Comments: mom states she has only attempted to put baby to breast a few times and baby stays on but only for a few minutes. Discharge Follow Up Appointment Date and Time: as needed Other Referral Made: Yes Feeding Preference at Discharge: Exclusive Pumped Brst Mlk LAC [place] Oral Assessment Oral Assessment Lip: Tight Upper Lip Palate: High Dental Referral made: Yes OP DC Assessment Discharge Follow Up Appointment Date and Time: as needed Other Referral Made: Yes Visit Complete?: Yes
== END 2025-08-02 23:59 | disposition home or self-care (01) ==
LOC: HODLAC 13:04
DX: Z39.1 Encounter for care and examination of lactating mother (principal)

== ENCOUNTER 2025-07-29 09:38 | Outpatient (AMB) | payer MEDICAID, SELFPAY ==
--- NOTE | 2025-07-29 10:00 | AMB.OBPP ---
Vital Signs 07/29/25 10:07 Height Method Stated Weight 126.609 kg Weight Measurement Method Standing Scale BP 129/86 H Blood Pressure Source Automatic Cuff Blood Pressure Location Left Upper Arm Position Sitting Respiration 18 Pulse 97 Pulse Source Monitor Temp 97.2 F Temp Source Oral Pulse Oximetry (%) 97 Oxygen Delivery Method Room Air Allergies/Home Meds Allergies & Medications Allergies No Known Allergies Allergy (Verified 07/29/25 10:08) Medication Reconciliation No Known Home Medications 07/29/25 [History Confirmed 07/29/25] Intake Visit Data Collection New Patient or Established: Established Patient (seen at [facility] within 3 years) Reason for Visit:: OBC Seen by Clinical Staff ONLY (RN/MA): No Laborer Ammunition Assembly Required: No Do You Feel Safe at Home: Yes Authorities Contacted: N/A PCP or OBGYN visit in last 3 months: Yes Date of Last PCP or OBGYN visit: 07/25/25 Hx Now: No Are you currently on any form of Control: No Pain Present Currently: No Pain Scale Used: Ramon-Carlos/Numerical Pain scale:: 0 Smoking Status Smoking Status: Never smoker Immunizations Flu Vaccine in the Last 12 Months: No Flu Vaccine Exclusion Criteria: No Exclusion Criteria PICK AND SHOVEL WORKER: Past Medical History Past Medical History: Yes Hx Hypertension, No Hx Renal Disease, No Hx Diabetes Mellitus Type 1 and No Hx Diabetes Mellitus Type 2 Questionnaires Covid-19 Vaccine Questionnaire Has patient been vacinated for Covid-19 Have you been vacinated for Covid-19: No Social History Living Situation History Marital Status: Single Lives With: Family Housing: Apartment Tobacco History Smoking Status: Never smoker Second Hand Smoke Exposure: Yes Alcohol History Alcohol Intake: Never Domestic Abuse History Do You Feel Safe at Home: Yes EPDS - PP Depression Screening [place] Pospartum Depression Screen I have been able to laugh and see the funny side of things: (0) As much as I always could I have looked forward with enjoyment to things: (0) As much as I ever did I have blamed myself unnecessarily when things went wrong: (0) No, never I have been anxious or worried for no good reason: (0) No, not at all I have felt scared or panicky for no very good reason: (0) No, not at all Things have been getting on top of me: (0) No, I have been coping as well as ever I have been so unhappy that I have had difficulty sleeping: (0) No, not at all I have felt sad or miserable: (0) No, not at all I have been so unhappy that I have been crying: (0) No, never The thought of harming myself has occurred to me: (0) Never Total Score: EPDS Score: Referral is indicated for score of 9 or more, suicidal, or if provider believes patient is depressed regardless of score.: 0 EPDS completed yes HPI Interval History: Mar Mason presents for routine postoperative follow-up status post section on July 15, 2020. The patient is currently her baby and has consulted with specialists. She reports developing a rash at the incision site, which appears to be related to adhesive tape. The patient has been following postoperative care instructions and the incision site is healing appropriately otherwise. She has a history of section on July 15, 2020. The patient is currently with living who is . She has an obstetric history of G1 T1 L1. The patient is currently . ROS: Negative except as stated above, limited to PICK AND SHOVEL WORKER and pertinent complaints. Exam Narrative Physical exam: - Abdominal: incision site examined with tape removed. Red areas noted around incision site, likely from tape irritation. Otherwise incision appears to be healing well. Office Procedures OBC Clinic LOC & Office Proc's Nursing/Assessment Patient Status: Established Patient OB Clinic Nursing Assessment: Medication Reconciliation, Update PMH in EMR and Vital Signs OB Clinic Coordination of Care: Consent,records obtained, informed consent, Education Simp Pt/Fam, Lab and Imaging orders, Results/Orders obtained and Staff clarify orders Established Patient Charge Established Patient Point Assignment: 80 Established Patient Point Charge: EP Level 3 (80-115) Assessment & Plan Diagnosis / Problem List (1) Encounter for removal of sutures: Status: Acute (2) Encounter for routine follow-up: Status: Acute (3) Encounter for other general counseling and advice on contraception: Status: Acute Plan Status post section: - Patient recovering well from section performed on July 15, 2020. - Incision site shows good healing with some erythematous areas from adhesive tape irritation. - No signs of infection or dehiscence observed. Plan: - Remove adhesive tape from incision site. - Clean incision daily with soap using hands only, avoid washcloths or rubbing. - Dab incision dry with towel after cleaning. - Allow incision to air dry before dressing. - Continue incision care regimen for one month, then resume normal activities. - Follow-up appointment in one month for routine care. - control counseling planned for next visit. establishment: - Patient successfully and has consulted with specialists for support and guidance. Plan: - Continue current routine.
[2025-07-29 10:07] VITALS: BP 129/86; PULSE 97; RESP 18; TEMP 36.2; O2SAT 97
== END 2025-07-29 10:25 | disposition home or self-care (01) ==
LOC: HODSOBC 09:38
PROVIDERS: Supervising Provider Obstetrics & Gynecology; Visit Provider Obstetrics & Gynecology
DX: Z39.2 Encounter for routine postpartum follow-up (principal); Z39.1 Encounter for care and examination of lactating mother
CPT/HCPCS: 99213; G0463

== ENCOUNTER 2025-09-03 13:28 | Outpatient (AMB) | payer MEDICAID, SELFPAY ==
[2025-09-03 13:45] VITALS: BP 135/84; PULSE 98; RESP 93; TEMP 36.2; O2SAT 98
--- NOTE | 2025-09-03 13:45 | AMBOBPPN_ITS ---
Vital Signs 09/03/25 13:45 Weight 128.367 kg Weight Measurement Method Standing Scale BP 135/84 H Blood Pressure Source Automatic Cuff Blood Pressure Location Left Upper Arm Position Sitting Respiration 93 H Pulse 98 Pulse Source Monitor Temp 97.2 F Temp Source Oral Pulse Oximetry (%) 98 Oxygen Delivery Method Room Air Allergies/Home Meds Allergies & Medications Allergies No Known Allergies Allergy (Verified 09/03/25 13:46) Medication Reconciliation No Known Home Medications 07/29/25 [History Confirmed 09/03/25] Intake Visit Data Collection New Patient or Established: Established Patient (seen at [facility] within 3 years) Reason for Visit:: OBC Seen by Clinical Staff ONLY (RN/MA): No Crushing Foreman Required: No Do You Feel Safe at Home: Yes Authorities Contacted: N/A PCP or OBGYN visit in last 3 months: Yes Date of Last PCP or OBGYN visit: 08/12/25 Hx Now: No Are you currently on any form of Control: No Pain Present Currently: No Pain Scale Used: Ramon-Carlos/Numerical Pain scale:: 0 Smoking Status Smoking Status: Never smoker Immunizations Flu Vaccine in the Last 12 Months: No Flu Vaccine Exclusion Criteria: No Exclusion Criteria [employer]: Past Medical History Past Medical History: Yes Hx Hypertension, No Hx Renal Disease, No Hx Diabetes Mellitus Type 1 and No Hx Diabetes Mellitus Type 2 Questionnaires Covid-19 Vaccine Questionnaire Has patient been vacinated for Covid-19 Have you been vacinated for Covid-19: Yes Social History Living Situation History Lives With: Family Housing: Apartment Tobacco History Smoking Status: Never smoker Second Hand Smoke Exposure: Yes Alcohol History Alcohol Intake: Never Domestic Abuse History Do You Feel Safe at Home: Yes EPDS - PP Depression Screening [place] Pospartum Depression Screen I have been able to laugh and see the funny side of things: (0) As much as I always could I have looked forward with enjoyment to things: (0) As much as I ever did I have blamed myself unnecessarily when things went wrong: (0) No, never I have been anxious or worried for no good reason: (0) No, not at all I have felt scared or panicky for no very good reason: (0) No, not at all Things have been getting on top of me: (0) No, I have been coping as well as ever I have been so unhappy that I have had difficulty sleeping: (0) No, not at all I have felt sad or miserable: (0) No, not at all I have been so unhappy that I have been crying: (0) No, never The thought of harming myself has occurred to me: (0) Never Total Score: EPDS Score: Referral is indicated for score of 9 or more, suicidal, or if provider believes patient is depressed regardless of score.: 0 EPDS completed yes HPI Interval History: Mar Mason presents for a visit following section delivery on July 15, 2020. She has a history of section on July 15, 2020. The patient had a section on July 15, 2020 and is currently presenting for visit. The patient consumes coffee. ROS: Negative except as stated above, limited to [employer] and pertinent complaints. Exam General General Appearance: alert, in no apparent distress and healthy appearing Head Head exam: atraumatic Neck Neck exam: Present normal inspection and trachea midline Chest Chest inspection: Present normal inspection and symmetric chest wall rise External exam: Present normal external exam; Absent tenderness Neuro Neurological exam: Present oriented X3 Psych Psychiatric exam: Present normal affect and normal mood Office Procedures OBC Clinic LOC & Office Proc's Nursing/Assessment Patient Status: Established Patient OB Clinic Nursing Assessment: Medication Reconciliation, Update PMH in EMR and Vital Signs OB Clinic Coordination of Care: Consent,records obtained, informed consent, Education Simp Pt/Fam, Lab and Imaging orders, Results/Orders obtained and Staff clarify orders Established Patient Charge Established Patient Point Assignment: 80 Established Patient Point Charge: EP Level 3 (80-115) Assessment & Plan Diagnosis / Problem List (1) Encounter for other general counseling and advice on contraception: Status: Acute (2) Encounter for routine follow-up: Status: Acute Plan status post section: - Patient presenting for routine follow-up after delivery performed on 07/15/2020. - Standard laboratory evaluation indicated. Plan: - Order OB panel including glucose testing. - Order NIPT testing. - [facility], no food or drink[facility] - Follow-up appointment scheduled in two weeks.
== END 2025-09-03 14:10 | disposition home or self-care (01) ==
LOC: HODSOBC 13:28
PROVIDERS: Supervising Provider Obstetrics & Gynecology; Visit Provider Obstetrics & Gynecology
DX: Z39.2 Encounter for routine postpartum follow-up (principal); Z30.09 Encounter for other general counseling and advice on contraception
CPT/HCPCS: 99213; G0463